=== PATIENT | male | born 1955 | race Caucasian/White ===

== ENCOUNTER 2023-05-05 06:04 | Day surgery (SDC) | payer MEDICARE ==
[2023-05-03 11:15] VITALS: BMI 29.2
[2023-05-05] MEDS ORDERED: Bupivacaine HCl 0.5%/Epinephrine 1:200,000/PF 30 ml Vial ONE (06:38)
[2023-05-05] MEDS ORDERED: fentaNYL PF 100 MCG/2 ML SYRINGE ONE (07:03)
[2023-05-05] MEDS ORDERED: Dexmedetomidine 200 MCG/2 ML VIAL ONE (07:04)
[2023-05-05] MEDS ORDERED: SUGAMMADEX SODIUM 200 MG/2 ML VIAL ONE (07:04)
[2023-05-05] MEDS ORDERED: CEFAZOLIN 2 GM VIAL ONE (07:19)
[2023-05-05] MEDS ORDERED: Sodium Chloride 0.9% 100 ML ONE (07:19)
[2023-05-05] MEDS ORDERED: PHENYLEPHRINE-NS 100 MCG/ML 10 ML SYRINGE ONE (07:35)
[2023-05-05] MEDS ORDERED: PROPOFOL 200 MG/20 ML VIAL ONE (07:35)
[2023-05-05] MEDS ORDERED: Lidocaine 1% PF 5 ML VIAL ONE (07:35)
[2023-05-05] MEDS ORDERED: Ondansetron PF 4 MG/2 ML Vial ONE (07:35)
[2023-05-05] MEDS ORDERED: Rocuronium Bromide 10 MG/ML (10ML VIAL) ONE (07:35)
[2023-05-05] MEDS ORDERED: NEOSTIGMINE 3 MG/3 ML SYR 3 MG/3 ML SYRINGE ONE (07:35)
[2023-05-05] MEDS ORDERED: Glycopyrrolate 0.2 MG/ML 5 ML SYRINGE ONE (07:35)
[2023-05-05] MEDS ORDERED: ePHEDrine Sulfate 50 MG/10 ML VIAL ONE (07:35)
[2023-05-05] MEDS ORDERED: Albuterol HFA (OR) 200 PUFF INH ONE (08:41)
[2023-05-05] MEDS ORDERED: fentaNYL 50 mcg/mL 1 mL Vial ONE ×2 (09:15→09:33)
[2023-05-05] MEDS ORDERED: HYDROcodone/Acetaminophen 5/325 mg Tablet ONE (11:14)
== END 2023-05-05 11:28 | disposition home or self-care (01) ==
LOC: SDC 06:04
PROVIDERS: ATTEND Surgery
PROC: 0YUA4JZ Supplement Bilateral Inguinal Region with Synthetic Substitute, Percutaneous Endoscopic Approach (ICD-10-PCS; principal; 2023-05-05)
DX: K40.90 Unilateral inguinal hernia, without obstruction or gangrene, not specified as recurrent (principal); Z79.899 Other long term (current) drug therapy
CPT/HCPCS: 49650; 93005; C1781 ×2; J3010; 93010; J2405; J2704; J3490